=== PATIENT | female | born 1950 | race Hispanic/Latino ===

== ENCOUNTER 2022-07-12 07:50 | Outpatient (CLI) | payer BC, SELFPAY ==
--- NOTE | ~2022-07-12 | MM_ITS ---
EXAMINATION: MM screening gabriela BI w yeni HISTORY: Screening mammogram TECHNIQUE: Craniocaudal and mediolateral oblique 3-D tomosynthesis images were obtained and synthetic 2-D images were generated. CAD analysis was submitted and interpreted. COMPARISON: 06/28/2017, 06/13/2016, 01/28/2015 bilateral screening mammogram examinations BREAST PARENCHYMAL COMPOSITION: The breasts are almost entirely fatty....... FINDINGS: There is no evidence of suspicious mass, calcification, or architectural distortion to sugg est malignancy in either breast. There has been no suspicious interval change. IMPRESSION: 1. No mammographic evidence of malignancy. 2. Recommend routine screening mammography in one year. BI-RADS Category 1: Negative Reviewed, dictated and finalized at location A. [place] [employer]OR
== END 2022-07-12 07:51 | disposition home or self-care (01) ==
PROVIDERS: PCP Family Medicine; Visit Provider Physician Assistant
DX: Z12.31 Encounter for screening mammogram for malignant neoplasm of breast (principal)
CPT/HCPCS: 77063; 77067

== ENCOUNTER 2023-08-21 14:49 | Outpatient (CLI) | payer BC, SELFPAY ==
--- NOTE | ~2023-08-21 | MM_ITS ---
EXAMINATION: MM screening gabriela BI w yeni HISTORY: Screening mammogram, family history of breast cancer in her daughter. TECHNIQUE: Craniocaudal and mediolateral oblique 3-D tomosynthesis images were obtained and synthetic 2-D images were generated. CAD analysis was submitted and interpreted. COMPARISON: 07/12/2022, 06/28/2017, 06/13/2016 BREAST PARENCHYMAL COMPOSITION: There are scattered areas of fibroglandular density. FINDINGS: No suspicious mass, calcification, or architectural distortion are identified in either alex ast to suggest malignancy. There has been no suspicious interval change. IMPRESSION: 1. No mammographic evidence of malignancy. 2. Recommend routine screening mammography in one year. 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
== END 2023-08-21 14:50 | disposition home or self-care (01) ==
PROVIDERS: PCP Family Medicine; Visit Provider Physician Assistant
DX: Z12.31 Encounter for screening mammogram for malignant neoplasm of breast (principal)
CPT/HCPCS: 77063; 77067

== ENCOUNTER 2024-09-16 07:28 | Outpatient (CLI) | payer BC, SELFPAY ==
--- NOTE | ~2024-09-16 | MM_ITS ---
EXAMINATION: MM screening [facility] BI w yeni HISTORY: Screening TECHNIQUE: Craniocaudal and mediolateral oblique 3-D tomosynthesis images were obtained and synthetic 2-D images were generated. CAD analysis was submitted and interpreted. COMPARISON: Comparison to multiple prior studies sequentially, with oldest reviewed study dated 01/28. BREAST PARENCHYMAL COMPOSITION: Not dense: There are scattered areas of fibroglandular density. FINDINGS: There is no evidence of suspicious mass, calcification, or architectural distortion to sugg est malignancy in either breast. There has been no suspicious interval change. IMPRESSION: 1. No mammographic evidence of malignancy. 2. Recommend routine screening mammography in one year. BI-RADS Category 1: Negative Reviewed, dictated and finalized at location A. 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
--- OUTSIDE RECORDS SUMMARY | 2024-09-16 07:32 | XMS_ITS | Data Portability ---
Author Organization [facility] Kash, Main Office Address [address] [place] [address] Assessment No assessment recorded. Plan of Treatment Reminders Order Date Submit Date Provider Last Modified By Organization Details Last Modified Time Details Appointments None recorded. Lab lipid panel, serum 2022 023 [facility] (Lab), [address] [place], [address], 3 04:49:45 vitamin D, 25-hydroxy, total, serum 2022 023 [facility] (Lab), [address] [place], [address], 3 04:49:45 CMP, serum or plasma 2022 023 [facility] (Lab), [address] [place], [address], 3 04:49:45 HbA1c (hemoglobin A1c), blood 2022 023 [facility] (Lab), [address] [place], [address], 3 09:13:25 vitamin D, 25-hydroxy, total, serum 2024 [email or web address] [place] [address] (Lab), [address] [place], [address], 5 08:13:54 CBC w/ auto diff 2024 [email or web address] [place] [address] (Lab), [address] [place], [address], 5 08:13:53 hepatitis C virus Ab, serum 2024 025 [facility] [address] [place] [address] (Lab), [address] [place], [address], 5 08:13:54 glycohemogl obin, total, blood 2024 025 [facility] [address] [place] [address] (Lab), [address] [place], [address], 5 08:13:53 CMP, serum or plasma 2024 025 [facility] [address] [place] [address] (Lab), [address] [place], [address], 5 08:13:53 lipid panel, serum [address] (Lab), [address] [place], [address], 5 08:13:53 hepatic function panel, serum [address] (Lab), [address] [place], [address], 5 08:13:53 Referral cardiologis t referral - Please call patient to schedule an appointment . 2023 024 MARII [facility] Referral Fax Line, [address] [facility] [address], [place], [address], 4 13:37:[address] referral - Please call patient to schedule an appointment . 2023 024 [email or web address] Juliana Leo MD, [address], [place], [address], 4 08:36:49 Procedures None recorded. Surgeries None recorded. Imaging MAMMO, screening, digital, bilateral 2022 023 [email or web address] [facility], [address], [address] [address], [place], [address], 3 12:27:03 electrocard iogram 2023 024 [email or web address] [facility] [place], [address] [place] [address] [address], [place], [address], 4 14:53:37 Medication Orders Flonase Allergy Relief 50 mcg/actuati on nasal spray,suspe nsion [email or web address] [facility], [address] [place], [address], 5 10:44:05 Zithromax Z-Abdi 250 mg tablet 20[address] [facility] [facility], [address] [place], [address], 5 10:43:35 montelukast 10 mg tablet [email or web address] [place] [address] [address], [address] [place], [address], 5 10:45:15 Patient TargetsNo targets recorded. Patient InstructionsNo instructions recorded. Reason for Referral Account Consultant Referral for S kin lesion lesion to rightt middle finger Please call patient to schedule an appointment. Referring Physician: Family Katiana Medicine, Encounter Date: 11/11/2023 Warp Dyeing Tender Referral for Ab normal heart beat Please call patient to schedule an appointment. Referring Physician: Family [facility] Medicine, Encounter Date: 11/11/2023 Results Created Date Observation Date Name Description Value Unit Range Abnormal Flag Note LastModifiedBy Organization Detail LastModifiedTime 02/21/20 21 02/20/2021 BASIC METAB OLIC PANEL sodium 141 mmol/ L 137-14 5 Not Available [facility] (Lab) [address] [place], [address], 02/20/2021 21:20:48 02/21/20 21 02/20/2021 BASIC METAB OLIC PANEL potassium 4.0 mmol/ L 3.5-5. 1 Not Available [facility] (Lab) [address] [place], [address], 02/20/2021 21:20:48 02/21/20 21 02/20/2021 BASIC METAB OLIC PANEL chloride 107 mmol/ L 98-107 Not Available [facility] (Lab) [address] [place], [address], 02/20/2021 21:20:48 02/21/20 21 02/20/2021 BASIC METAB OLIC PANEL carbon dioxide 27 mmol/ L 22-30 Not Available [facility] (Lab) [address] [place], [address], 02/20/2021 21:20:48 02/21/20 21 02/20/2021 BASIC METAB OLIC PANEL BUN 18 mg/dL 8-19 Not Available [facility] (Lab) [address] [place], [address], 02/20/2021 21:20:48 02/21/20 21 02/20/2021 BASIC METAB OLIC PANEL agap 11.0 mmol/ L 14-22 low Not Available [facility] (Lab) [address] [place], [address], 02/20/2021 21:20:48 02/21/20 21 02/20/2021 BASIC METAB OLIC PANEL glucose 99 mg/dL 70-99 Not Available [facility] (Lab) [address] [place], [address], 02/20/2021 21:20:48 02/21/20 21 02/20/2021 BASIC METAB OLIC PANEL creatinine 0.76 mg/dL 0.66-1 .25 Not Available [facility] (Lab) [address] [place], [address], 02/20/2021 21:20:48 02/21/20 21 02/20/2021 BASIC METAB OLIC PANEL GFR >60 Refer ence Range : [place] ge GFR Healt hy Adult : >60 mL/mi n/1.7 3 m2 Chron ic Kidne y Disea se: 15-60 mL/mi n/1.7 3 m2 Kidne y Failu re: <15/m L/min /1.73 m2 www.n iddk. nih.g ov MDRD study equat ion hasn' t been valid ated in child tera <18 yrs of age, pregn ant women , the elder ly >85 yrs of age, or in some racia l or ethni c subgr oups, suc as Hispa nics. Outsi de the valid ated sada eters , estim ated GFR is less accur ate requi ring clini lucy judgm ent on a case by case basis . Clini lucy inter preta tion for other races and ages must be made by the clini johnny . Futhe rmore , any of th e limit ation s with the use of serum creat inine relat ed to nutri jada l statu s o r medic ation usage hasn' t accou nted for the MDRD Study equat ion. For perso ns < 18 yrs of age, a pedia tric GFR calcu lator can be locat ed on the F websi te: https ://dusty vasquez.daniella bailon/pr ofess ional s/kdo qi/gf r_cal culat or Not Available [facility] (Lab) [address] [place], [address], 02/20/2021 21:20:48 02/21/20 21 02/20/2021 BASIC METAB OLIC PANEL calcium 9.5 mg/dL 8.4-10 .2 Not Available [facility] (Lab) [address] [place], [address], 02/20/2021 21:20:48 02/21/20 21 02/20/2021 VITAM IN D 25-HY DROXY vd25oh 37.0 NG/mL 30-100 Vitam in D Statu s: Defic ient: <20 ng/mL Insuf ficie nt: 20-29 ng/mL Suffi cient : 30-10 0 ng/mL Not Available [facility] (Lab) [address] [place], [address], 02/20/2021 21:36:14 02/21/20 21 02/20/2021 HEPAT IC/LI OSCAR PANEL alkaline phosphatase 100 U/L 38-126 Not Available [facility] (Lab) [address] [place], [address], 02/20/2021 21:20:53 02/21/20 21 02/20/2021 HEPAT IC/LI OSCAR PANEL alanine aminotransfe rase 15 U/L 0-35 Not Available [facility] (Lab) [address] [place], [address], 02/20/2021 21:20:53 02/21/20 21 02/20/2021 HEPAT IC/LI OSCAR PANEL aspartate aminotransfe rase 30 U/L 15-37 Not Available [facility] (Lab) [address] [place], [address], 02/20/2021 21:20:53 02/21/20 21 02/20/2021 HEPAT IC/LI OSCAR PANEL bilirubin, total 0.70 mg/dL 0.20-1 .30 Not Available [facility] (Lab) [address] [place], [address], 02/20/2021 21:20:53 02/21/20 21 02/20/2021 HEPAT IC/LI OSCAR PANEL bilirubin, conjugated (direct) 0.00 mg/dL 0.00-0 .30 Not Available [facility] (Lab) [address] [place], [address], 02/20/2021 21:20:53 02/21/20 21 02/20/2021 HEPAT IC/LI OSCAR PANEL biliurubin,u ncong. (indirect) 0.40 mg/dL 0.00-1 .1 Not Available [facility] (Lab) [address] [place], [address], 02/20/2021 21:20:53 02/21/20 21 02/20/2021 HEPAT IC/LI OSCAR PANEL total protein 7.4 g/dL 6.3-8. 2 Not Available [facility] (Lab) [address] [place], [address], 02/20/2021 21:20:53 02/21/20 21 02/20/2021 HEPAT IC/LI OSCAR PANEL albumin 4.5 g/dL 3.0-4. 4 high Not Available [facility] (Lab) [address] [place], [address], 02/20/2021 21:20:53 02/21/20 21 02/20/2021 HEPAT IC/LI OSCAR PANEL globulin 2.9 g/dL 2.6-4. 2 Not Available [facility] (Lab) [address] [place], [address], 02/20/2021 21:20:53 02/21/20 21 02/20/2021 HEPAT IC/LI OSCAR PANEL A/G ratio 1.6 ratio 1.0-2. 0 Not Available [facility] (Lab) [address] [place], [address], 02/20/2021 21:20:53 02/21/20 21 02/20/2021 LIPID PANEL cholesterol 180 mg/dL 140-19 9 [facility] MAR[facility] NSUS RECOM MENDA TION FOR ADIS STERO L: ADULT CHILD LOW RISK: <200 <170 BORDE RLINE : <200- 239 ----- HIGH RISK: >240 >200 Not Available [facility] (Lab) [address] [place], [address], 02/20/2021 21:20:49 02/21/20 21 02/20/2021 LIPID PANEL triglyceride s 117 mg/dL 0-150 NIH MARITA NSUS REPOR T RECOM MENDA TION FOR TRIGL YCERI FILEMON: ADULT CHILD LOW RISK: <150 ----- BODER LINE: 150-1 99 ----- HIGH RISK: >200 ----- Not Available [facility] (Lab) [address] [place], [address], 02/20/2021 21:20:49 02/21/20 21 02/20/2021 LIPID PANEL HDL cholesterol 84 mg/dL 40- Not Available [facility] (Lab) [address] [place], [address], 02/20/2021 21:20:49 02/21/20 21 02/20/2021 LIPID PANEL LDL cholesterol, calculated 73 mg/dL 0-130 [facility] MARITA NSUS REPOR T RECOM MENDA TIONS FOR LDL: ADULT CHILD LOW RISK <130 <110 (OPTI MAL LDL) <100 ----- BORDE RLINE : 130-1 59 ----- HIGH RISK: >160 >130 A TRIGL YCERI DE RESUL T >400 INVAL IDATE S THE CALCU LATIO N FOR LDL FRACT IONAT ION - THE LDL RESUL T WILL NOT BE REPOR ADRIAN. Not Available [facility] (Lab) [address] [place], [address], 02/20/2021 21:20:49 02/21/20 21 02/20/2021 CBC/C OMPLE TE BLD COUNT W/DIF F mean red cell volume 93.0 fL 82.0-9 9.0 Not Available [facility] (Lab) [address] [place], [address], 02/20/2021 20:33:56 02/21/20 21 02/20/2021 CBC/C OMPLE TE BLD COUNT W/DIF F white blood cells 4.1 x10'3 /uL 4.2-10 .8 low Not Available [facility] (Lab) [address] [place], [address], 02/20/2021 20:33:56 02/21/20 21 02/20/2021 CBC/C OMPLE TE BLD COUNT W/DIF F red blood cells 4.44 x10'6 /uL 3.80-5 .20 Not Available [facility] (Lab) [address] [place], [address], 02/20/2021 20:33:56 02/21/20 21 02/20/2021 CBC/C OMPLE TE BLD COUNT W/DIF F hemoglobin 13.3 g/dL 12.0-1 5.6 Not Available [facility] (Lab) [address] [place], [address], 02/20/2021 20:33:56 02/21/20 21 02/20/2021 CBC/C OMPLE TE BLD COUNT W/DIF F hematocrit 41.3 % 35.7-4 5.7 Not Available [facility] (Lab) [address] [place], [address], 02/20/2021 20:33:56 02/21/20 21 02/20/2021 CBC/C OMPLE TE BLD COUNT W/DIF F mean red cell hemoglobin 30.0 pg 27.0-3 3.0 Not Available [facility] (Lab) [address] [place], [address], 02/20/2021 20:33:56 02/21/20 21 02/20/2021 CBC/C OMPLE TE BLD COUNT W/DIF F mean RBC HGB concentratio n 32.2 g/dL 31.0-3 6.0 Not Available [facility] (Lab) [address] [place], [address], 02/20/2021 20:33:56 02/21/20 21 02/20/2021 CBC/C OMPLE TE BLD COUNT W/DIF F red cell distribution width 12.3 % 11.8-1 5.5 Not Available [facility] (Lab) [address] [place], [address], 02/20/2021 20:33:56 02/21/20 21 02/20/2021 CBC/C OMPLE TE BLD COUNT W/DIF F platelets 211 x10'3 /uL 150-40 0 Not Available [facility] (Lab) [address] [place], [address], 02/20/2021 20:33:56 02/21/20 21 02/20/2021 CBC/C OMPLE TE BLD COUNT W/DIF F mean platelet volume 11.7 fL 9.0-12 .4 Not Available [facility] (Lab) [address] [place], [address], 02/20/2021 20:33:56 02/21/20 21 02/20/2021 CBC/C OMPLE TE BLD COUNT W/DIF F neutrophils 50.4 % 39.0-7 2.0 Not Available [facility] (Lab) [address] [place], [address], 02/20/2021 20:33:56 02/21/20 21 02/20/2021 CBC/C OMPLE TE BLD COUNT W/DIF F lymphocytes 35.2 % 16.0-4 7.0 Not Available [facility] (Lab) [address] [place], [address], 02/20/2021 20:33:56 02/21/20 21 02/20/2021 CBC/C OMPLE TE BLD COUNT W/DIF F monocytes 10.0 % 5.0-12 .0 Not Available [facility] (Lab) [address] [place], [address], 02/20/2021 20:33:56 02/21/20 21 02/20/2021 CBC/C OMPLE TE BLD COUNT W/DIF F eosinophils 3.4 % 1.0-7. 0 Not Available [facility] (Lab) [address] [place] [place], [address], 02/20/2021 20:33:56 02/21/20 21 02/20/2021 CBC/C OMPLE TE BLD COUNT W/DIF F basophils 1.0 % 0.0-2. 0 Not Available [facility] (Lab) [address] [place], [address], 02/20/2021 20:33:56 02/21/20 21 02/20/2021 CBC/C OMPLE TE BLD COUNT W/DIF F immature granulocytes 0.0 % 0.00-0 .50 Not Available [facility] (Lab) [address] [place], [address], 02/20/2021 20:33:56 02/21/20 21 02/20/2021 CBC/C OMPLE TE BLD COUNT W/DIF F neutrophils, absolute count 2.08 x10'3 /uL 1.5-8. 0 Not Available [facility] (Lab) [address] [place], [address], 02/20/2021 20:33:56 02/21/20 21 02/20/2021 CBC/C OMPLE TE BLD COUNT W/DIF F lymphocytes, absolute count 1.45 x10'3 /uL 1.07-3 .43 Not Available [facility] (Lab) [address] [place], [address], 02/20/2021 20:33:56 02/21/20 21 02/20/2021 CBC/C OMPLE TE BLD COUNT W/DIF F monocytes, absolute count 0.41 x10'3 /uL 0.29-0 .99 Not Available [facility] (Lab) [address] [place], [address], 02/20/2021 20:33:56 02/21/20 21 02/20/2021 CBC/C OMPLE TE BLD COUNT W/DIF F eosinophils, absolute count 0.14 x10'3 /uL 0.02-0 .53 Not Available [facility] (Lab) [address] [place], [address], 02/20/2021 20:33:56 02/21/20 21 02/20/2021 CBC/C OMPLE TE BLD COUNT W/DIF F basophils, absolute count 0.04 x10'3 /uL 0.01-0 .08 Not Available [facility] (Lab) [address] [place], [address], 02/20/2021 20:33:56 02/21/20 21 02/20/2021 CBC/C OMPLE TE BLD COUNT W/DIF F immature granulocytes ,absolute 0.00 x10'3 /uL 0.00-0 .05 Not Available [facility] (Lab) [address] [place], [address], 02/20/2021 20:33:56 02/21/20 21 02/20/2021 CBC/C OMPLE TE BLD COUNT W/DIF F nucleated red blood cells 0.0 % -0 Not Available [facility] (Lab) [address] [place], [address], 02/20/2021 20:33:56 02/21/20 21 02/20/2021 CBC/C OMPLE TE BLD COUNT W/DIF F NRBC# 0.00 x10'3 /uL Not Available [facility] (Lab) [address] [place], [address], 02/20/2021 20:33:56 04/26/20 22 04/26/2022 HEMOG LOBIN A1C HA1C 5.4 % 4.0-6. 0 Diabe rosy Scree lauren Crite wilver: <5.7% Consi stent with absen ce of diabe rosy 5.7-6 .4% Consi stent with incre ased risk for diabe rosy (pred iabet es) >OR=6 .5% Consi stent with diabe rosy REFER ENCE: Diabe rosy Care 2016, 39(Webb ppl.1 ):s13 -s22 Not Available [facility] (Lab) [address] [place], [address], 04/26/2022 21:22:43 04/26/20 22 04/26/2022 VITAM IN D 25-HY DROXY vd25oh 39.1 NG/mL 30-100 Vitam in D Statu s: Defic ient: <20 ng/mL Insuf ficie nt: 20-29 ng/mL Suffi cient : 30-10 0 ng/mL Not Available [facility] (Lab) [address] [place], [address], 04/26/2022 20:27:34 04/26/20 22 04/26/2022 COMPR EHENS AKILA METAB OLIC PANEL carbon dioxide 28 mmol/ L 22-30 Not Available [facility] (Lab) [address] [place], [address], 04/26/2022 20:21:57 04/26/20 22 04/26/2022 COMPR EHENS AKILA METAB OLIC PANEL sodium 137 mmol/ L 137-14 5 Not Available [facility] (Lab) [address] [place], [address], 04/26/2022 20:21:57 04/26/20 22 04/26/2022 COMPR EHENS AKILA METAB OLIC PANEL potassium 4.8 mmol/ L 3.5-5. 1 Not Available [facility] (Lab) [address] [place], [address], 04/26/2022 20:21:57 04/26/20 22 04/26/2022 COMPR EHENS AKILA METAB OLIC PANEL chloride 100 mmol/ L 98-107 Not Available [facility] (Lab) [address] [place], [address], 04/26/2022 20:21:57 04/26/20 22 04/26/2022 COMPR EHENS AKILA METAB OLIC PANEL anion gap 13.8 mmol/ L 14-22 low Not Available [facility] (Lab) [address] [place], [address], 04/26/2022 20:21:57 04/26/20 22 04/26/2022 COMPR EHENS AKILA METAB OLIC PANEL glucose 93 mg/dL 70-99 Not Available [facility] (Lab) [address] [place], [address], 04/26/2022 20:21:57 04/26/20 22 04/26/2022 COMPR EHENS AKILA METAB OLIC PANEL BUN 16 mg/dL 8-19 Not Available [facility] (Lab) [address] [place], [address], 04/26/2022 20:21:57 04/26/20 22 04/26/2022 COMPR EHENS AKILA METAB OLIC PANEL creatinine 0.92 mg/dL 0.66-1 .25 Not Available [facility] (Lab) [address] [place], [address], 04/26/2022 20:21:57 04/26/20 22 04/26/2022 COMPR EHENS AKILA METAB OLIC PANEL GFR 60 Refer ence Range : [place] ge GFR Healt hy Adult : >60 mL/mi n/1.7 3 m2 Chron ic Kidne y Disea se: 15-60 mL/mi n/1.7 3 m2 Kidne y Failu re: <15/m L/min /1.73 m2 www.n iddk. nih.g ov The MDRD study equat ion has not been valid ated in child tera <18 years of age; pregn ant women ; the elder ly >85 years of age; or in some racia l or ethni c subgr oups, such as Hispa nics. Outsi de the valid ated sada eters , estim ated GFR is less accur ate, requi ring clini lucy judgm ent on a case- by-ca se basis . Clini lucy inter preta tion for other races and ages must be made by the clini johnny. The MDRD study equat ion has not been valid ated for the evalu ation of serum creat inine relat ed to nutri jada l statu s or medic ation usage . For perso ns <18 years of age, a pedia tric GFR calcu lator is avail able on the [facility] websi te: https ://dusty w.krzysztof navarroy.o rg/pr ofess ional s/kdo qi/gf r_cal culat or Not Available [facility] (Lab) [address] [place], [address], 04/26/2022 20:21:57 04/26/20 22 04/26/2022 COMPR EHENS AKILA METAB OLIC PANEL alkaline phosphatase 88 U/L 38-126 Not Available [facility] (Lab) [address] [place], [address], 04/26/2022 20:21:57 04/26/20 22 04/26/2022 COMPR EHENS AKILA METAB OLIC PANEL alanine aminotransfe rase 13 U/L 0-35 Not Available [facility] (Lab) [address] [place], [address], 04/26/2022 20:21:57 04/26/20 22 04/26/2022 COMPR EHENS AKILA METAB OLIC PANEL aspartate aminotransfe rase 23 U/L 15-37 Not Available [facility] (Lab) [address] [place], [address], 04/26/2022 20:21:57 04/26/20 22 04/26/2022 COMPR EHENS AKILA METAB OLIC PANEL bilirubin, total 0.70 mg/dL 0.20-1 .30 Not Available [facility] (Lab) [address] [place], [address], 04/26/2022 20:21:57 04/26/20 22 04/26/2022 COMPR EHENS AKILA METAB OLIC PANEL calcium 9.6 mg/dL 8.4-10 .2 Not Available [facility] (Lab) [address] [place], [address], 04/26/2022 20:21:57 04/26/20 22 04/26/2022 COMPR EHENS AKILA METAB OLIC PANEL total protein 7.3 g/dL 6.3-8. 2 Not Available [facility] (Lab) [address] [place], [address], 04/26/2022 20:21:57 04/26/20 22 04/26/2022 COMPR EHENS AKILA METAB OLIC PANEL albumin 4.5 g/dL 3.0-4. 4 high Not Available [facility] (Lab) [address] [place], [address], 04/26/2022 20:21:57 04/26/20 22 04/26/2022 COMPR EHENS AKILA METAB OLIC PANEL globulin 2.8 g/dL 2.6-4. 2 Not Available [facility] (Lab) [address] [place], [address], 04/26/2022 20:21:57 04/26/20 22 04/26/2022 COMPR EHENS AKILA METAB OLIC PANEL A/G ratio 1.6 ratio 1.0-2. 0 Not Available [facility] (Lab) [address] [place], [address], 04/26/2022 20:21:57 04/26/20 22 04/26/2022 LIPID PANEL cholesterol 178 mg/dL 140-19 9 NIH MARITA NSUS RECOM MENDA TION FOR ADIS STERO L: ADULT CHILD LOW RISK: <200 <170 BORDE RLINE : <200- 239 ----- HIGH RISK: >240 >200 Not Available [facility] (Lab) [address] [place], [address], 04/26/2022 20:22:01 04/26/20 22 04/26/2022 LIPID PANEL triglyceride s 122 mg/dL 0-150 NIH MARITA NSUS REPOR T RECOM MENDA TION FOR TRIGL YCERI FILEMON: ADULT CHILD LOW RISK: <150 ----- BODER LINE: 150-1 99 ----- HIGH RISK: >200 ----- Not Available [facility] (Lab) [address] [place], [address], 04/26/2022 20:22:01 04/26/20 22 04/26/2022 LIPID PANEL HDL cholesterol 75 mg/dL 40- Not Available [facility] (Lab) [address] [place], [address], 04/26/2022 20:22:01 04/26/20 22 04/26/2022 LIPID PANEL LDL cholesterol, calculated 79 mg/dL 0-130 NIH MARITA NSUS REPOR T RECOM MENDA TIONS FOR LDL: ADULT CHILD LOW RISK <130 <110 (OPTI MAL LDL) <100 ----- BORDE RLINE : 130-1 59 ----- HIGH RISK: >160 >130 A TRIGL YCERI DE RESUL T >400 INVAL IDATE S THE CALCU LATIO N FOR LDL FRACT IONAT ION - THE LDL RESUL T WILL NOT BE REPOR ADRIAN. Not Available [facility] (Lab) [address] [place], [address], 04/26/2022 20:22:01 07/13/20 22 07/12/2022 MAMMO , scree lauren, digit al, bilat eral No observ ation record ed. [id number], [place], [address], 10/16/2022 06:18:35 08/21/19 24 08/21/2023 MAMMO , scree lauren, digit al, bilat eral No observ ation record ed. [email or web address] [facility] [address], [place], [address], 09/16/2023 14:23:47 11/11/19 24 elect dagmar laridgr am No observ ation record ed. [email or web address] [facility] [address], [place], [address], 11/11/2023 08:24:31 12/12/19 24 12/12/2023 US, doppl er, venou s No observ ation record ed. [email or web address] [facility] [address], [place], [address], 01/15/2024 09:39:48 12/12/19 24 12/11/2023 US, echoc ardio gram, trans thora cic, compl ete No observ ation record ed. [facility] [address], [place], [address], 01/15/2024 09:42:15 Result Notes None recorded. Problems Name Problem SNOMED Code Status Onset Date Resolution Date Notes Provider Name and Address Organization Details Recorded Time Vitamin D deficiency 65812630 Active 2018 Not Available [facility] 3 06:07:40 Hyperlipidemi a 70557427 Active 2018 Not Available [facility] 3 06:07:40 Essential hypertension 77779726 Active 2018 Not Available [facility] 3 06:07:40 Congestion of throat 368013540 Active 2022 FARZANA Marie [address] [facility], [place], [address] , [place] [facility] 3 09:42:37 Obstructive sleep apnea syndrome 97271760 Active 2022 FARZANA Marie [address], [address], [place], [address] , [facility] [employer] 3 12:07:13 Skin lesion 23149454 Active 2023 Edgar Shearer STUDENT NURSE-C [address], [place], [address] , [place] [facility] [employer] 4 08:12:43 Nasal congestion 55122399 Active 2023 Edgar Shearer STUDENT NURSE-C [address], [address], [place], [address] , [place] [facility] [employer] 4 08:14:57 Abnormal heart beat 426000687 Active 2023 Edgar Shearer STUDENT NURSE-C [address], [place], [address] , [place] [facility] [employer] 4 08:24:27 Problem Notes None recorded. Procedures Surgical History Date Name Laterality Status Provider Name and Address Organization Details Recorded Time Most Recent Mammogram completed Jacqui Green LPN [place] [facility] [employer] 09/15/2023 16:33:36 Imaging Results Imaging Date Name Status LastModified by Organization Details LastModified Time 07/12/2022 MAMMO, screening, digital, bilateral completed [id number], [place], [address], 10/16/2022 06:18:35 08/21/2023 MAMMO, screening, digital, bilateral completed [email or web address] [address], [place], [address], 09/16/2023 14:23:47 11/11/2023 electrocardiogram completed [email or web address] [address], [place], [address], 11/11/2023 08:24:31 12/12/2023 US, doppler, venous completed [facility] [address], [place], [address], 01/15/2024 09:39:48 12/11/2023 US, echocardiogram, transthoracic, complete completed [address] [facility] [address], [place], [address], 01/15/2024 09:42:15 Procedure Notes None recorded. Medical Equipment None Reported. Allergies Allergen ID Allergen Name Allergen Category Reaction Reaction Severity Criticality Documentation Date Start Date Code Code System Note Provider Name and Address Organization Details Recorded Time 44109 amoxicill in medicatio n hives Not available Not available 10/16/2022 723 RxNorm Not Available [facility] 3 06:18:07 74083 Product containin g penicilli n and antibioti c (product) medicatio n hives Not available Not available 11/11/2023 34920 05 SNOMED Khloe Vizcaino RN null, [place] [facility] [place] [employer] 4 08:04:10 Medications Name Sig Start Date Stop Date Status Note LastModified by Organization Details LastModified Time furosemid e 40 mg tablet Take 1 tablet every day by oral route. active Not Available Not Available No t Available atorvasta tin 20 mg tablet TAKE 1 TABLET BY MOUTH ONCE DAILY AT BEDTIME active Not Available Not Available No t Available oxybutyni n chloride ER 10 mg tablet,ex tended release 24 hr Take 1 tablet every day by oral route. active Not Available Not Available No t Available azithromy millie 250 mg tablet TAKE 2 TABLETS (500 MG) BY ORAL ROUTE ONCE DAILY FOR 1 DAY THEN 1 TABLET (250 MG) BY ORAL ROUTE ONCE DAILY FOR 4 DAYS 09/08 completed Not Available Not Available Not Available fluconazo le 150 mg tablet 1 po x 1 active Not Available Not Available Not Available hydrocodo ne 5 mg-acetam inophen 325 mg tablet TAKE 1 TABLET BY MOUTH EVERY 4 HOURS NEEDED FOR PAIN (MODERAT E SCALE 4 6) active Not Available Not Available No t Available lisinopri l 20 mg tablet Take 1 tablet every day by oral route. active Not Available Not Available No t Available prednison e 20 mg tablet TAKE 2 TABLETS BY MOUTH ONCE DAILY WITH FOOD FOR 5 DAYS active Not Available Not Available No t Available aspirin 81 mg tablet,de layed release Take 1 tablet every day by oral route. 2018 active Not Available Not Available Not Avai lable amoxicill in 875 mg tablet TAKE 1 TABLET BY MOUTH EVERY 12 HOURS FOR 7 DAYS active Not Available Not Available No t Available benzonata te 100 mg capsule TAKE 1 CAPSULE BY MOUTH THREE TIMES DAILY FOR 10 DAYS 04/26 completed Not Available Not Available Not Available pantopraz ole 40 mg tablet,de layed release Take 1 tablet every day by oral route. 06/24 completed Not Available Not Available Not Available lisinopri l 20 mg-hydroc hlorothia zide 25 mg tablet TAKE 1 TABLET BY MOUTH ONCE DAILY 09/08 completed Not Available Not Available Not Available diclofena c sodium 75 mg tablet,de layed release Take 1 tablet by mouth twice daily as needed 02/10 completed stopped by cardiolo gist Not Available Not Available Not Available monteluka st 10 mg tablet Take 1 tablet every day by oral route. 09/08 completed Not Available Not Available Not Available albuterol sulfate HFA 90 mcg/actua tion aerosol inhaler INHALE 1 TO 2 PUFFS BY MOUTH EVERY 4 TO 6 HOURS NEEDED FOR WHEEZING FOR 10 DAYS active Not Available Not Available No t Available fluticaso ne propionat e 50 mcg/actua tion nasal spray,jessica pension USE 1 SPRAY(S) IN EACH NOSTRIL ONCE DAILY 09/08 completed Not Available Not Available Not Available metoprolo l tartrate 25 mg tablet TAKE 1 TABLET BY MOUTH TWICE DAILY active Not Available Not Available No t Available acetamino phen 03/06 completed Not Available Not Available Not Available naproxen 03/08 completed Not Available Not Available Not Available Vitamin D3 125 mcg (5,000 unit) tablet Take 1 tablet every day by oral route. 2022 active Not Available Not Available Not Avai lable Myrbetriq 25 mg tablet,ex tended release Take 1 tablet every day by oral route. 03/06 completed Not Available Not Available Not Available Eliquis 2.5 mg tablet TAKE 1 TABLET BY MOUTH TWICE DAILY (CONTINU E THROUGH 8 27) active Not Available Not Available No t Available Fluzone High-Dose 2019-20 (PF) 180 mcg/0.5 mL intramusc ular syringe ADM 0.5ML IM UTD 04/26 completed Not Available Not Available Not Available Fluad Quad (65yr up)(PF) 60 mcg (15 mcg x 4)/0.5mL IM syringe ADM 0.5ML IM UTD active Not Available Not Available No t Available Vitals Date Recorded Body mass index (BMI) Body height Oxygen saturation Oxygen saturation in Arterial blood by Pulse oximetry Heart rate Body temperature Body weight Systolic blood pressure Diastolic blood pressure Provider Name and Address Organization Details Last Updated DateTime 1 41.2 kg/m2 154.94 cm 99 % 99 % 79 /min 97.4 [degF] 13098.1 4 g 122 mm[Hg] 72 mm[Hg] Not Available [facility] 3 06:05:13 Date Recorded Body mass index (BMI) Body height Oxygen saturation Oxygen saturation in Arterial blood by Pulse oximetry Heart rate Body temperature Body weight Systolic blood pressure Diastolic blood pressure Provider Name and Address Organization Details Last Updated DateTime 2 43.8 kg/m2 154.94 cm 96 % 96 % 77 /min 98.1 [degF] 686879. 43 g 140 mm[Hg] 76 mm[Hg] Not Available [facility] 3 06:05:13 Date Recorded Body weight Body mass index (BMI) Body height Body temperature Heart rate Oxygen saturation Oxygen saturation in Arterial blood by Pulse oximetry Systolic blood pressure Diastolic blood pressure Provider Name and Address Organization Details Last Updated DateTime 3 953750. 69 g 41 kg/m2 157.48 cm 98.4 [degF] 47 /min 95 % 95 % 162 mm[Hg] 81 mm[Hg] Thelma Fitch MA [place] [employer] [facility] 3 08:34:09 Date Recorded Systolic blood pressure Diastolic blood pressure Provider Name and Address Organization Details Last Updated DateTime 06/24/2023 148 mm[Hg] 90 mm[Hg] FARZANA Marie [address] [facility], [place] [address], [place], [address], [place] [employer] [facility] 06/24/2023 09:41:48 Date Recorded Body height Body mass index (BMI) Body weight Body temperature Heart rate Oxygen saturation Oxygen saturation in Arterial blood by Pulse oximetry Systolic blood pressure Diastolic blood pressure Provider Name and Address Organization Details Last Updated DateTime 4 157.48 cm 40.6 kg/m2 033538. 51 g 96.9 [degF] 59 /min 100 % 100 % 132 mm[Hg] 72 mm[Hg] Khloe Vizcaino RN [facility] [employer] [facility] 4 08:06:36 Date Recorded Body height Body mass index (BMI) Body weight Body temperature Heart rate Oxygen saturation Oxygen saturation in Arterial blood by Pulse oximetry Systolic blood pressure Diastolic blood pressure Provider Name and Address Organization Details Last Updated DateTime 5 157.48 cm 40.1 kg/m2 63930.7 3 g 96.7 [degF] 64 /min 94 % 94 % 126 mm[Hg] 72 mm[Hg] Avel Mackey RN [facility] [employer] [facility] 5 10:43:19 Social History None recorded. Functional Status None recorded. Mental Status None recorded. Family History Nothing Reported. Medical History No medical history recorded. Gynecological History Statement/Question Response Date of Last Mammogram 08/21/2023 Most Recent Mammogram 08/21/2023 Obstetrics History GPAL:G 0 P 0 0 0 0 Immunizations Vaccine Type Date Status Note Provider Nam e and Address Organization Details Recorded Time Influenza, high-dose, quadrivalent, PF 3 completed GLORY Knight [facility] [employer] [facility] 06/24/2023 11:57:51 Tdap 3 completed GLORY Knight [facility] [employer] [facility] 06/24/2023 12:16:15 COVID-19, mRNA, LNP-S, PF, 30 mcg/0.3 mL dose 1 completed Not Available [facility] 10/16/2022 06:17:52 COVID-19, mRNA, LNP-S, PF, 30 mcg/0.3 mL dose 1 completed Not Available [facility] 10/16/2022 06:17:52 Influenza, split virus, quadrivalent, preservative 9 completed Not Available [facility] 10/16/2022 06:17:52 Past Encounters Encounter ID Performer Location Encounter Start Date Encounter Closed Date Diagnosis/Indication Diagnosis SNOMED-CT Code Diagnosis ICD10 Code Diagnosis Note [id number] [facility] [place] [address] [facility] [address] [place] [address] 02/20/2021 00:00:00 02/20/2021 09:35:07 [id number] [facility] [place] [address] [facility] [address] [address] 04/26/2022 00:00:00 04/26/2022 12:25:53 [id number] FARZANA Marie [facility] [place] [address] [facility] [address] [place] [address] 06/24/2023 08:22:07 06/24/2023 09:40:36 Administration of influenza vaccine 63157289 Z23 Adult heal th examination 476377680 Z00.00 Will get routine labs today. Covid vaccines- recommende d; declinesFl u vaccine- updated todayTetan us vaccine- will update todayPneum onia vaccine- recommende d; decline to update today Colonoscop y- declines; pt states she has never had oneMammogr am- ordered Recommende d routine eye exams and dental cleanings. Screening mammography 24 161343 Z12.31 Administra tion of tetanus vaccine 259739907 Z23 Diabetes m ellitus screening 629366535 Z13.1 Hyperlipidemia 79978744 E78.5 Essential hypertension 09406952 I10 Elevated while in office. Pt. denies any symptoms. Advised to continue to monitor at home.Will titrate medication as necessary. Vitamin D deficiency 347 69251 E55.9 Congestion of throat 102 453230 R09.89 Symptoms sound more allergic. Advised to try flonase/al lergy medication . [id number] ADELAIDA Saab [facility] [place] [address] [facility] [address] [address] 11/11/2023 07:56:48 11/11/2023 11:35:32 Skin lesion 97615212 L98.9 -noted to right middle finger since last year-c/o of pain when she bumps it up against something- occ has fluid that comes out of it-referra l to derm given Nasal congestion 2292683 0 R09.81 -notes nasal congestion quite a bit-uses 2 sprays of fluticason e/day with min effect-all egra daily-uses coricidin when symptoms get too bad-trial zpak-trial montelukas t Abnormal heart beat 3611 29061 R00.9 -noted on exam-pt unable to speak to cardiac history-no t currently f/u with cardiology -ekg obtained-s inus arrhythmia , consider premature supraventr icular complexes, HR elevated to 102 from 59 after transferri ng to table-card iology referral given [id number] Kalee Matos, STUDENT NURSE-C [facility] Primary Care [facility] [address] [address] [place] [address] 09/08/2024 10:33:47 09/08/2024 11:16:18 Adult health examination 497623002 Z00.00 Discussed medication compliance and routine follow up.Discuss ed healthy diet and routine exercise.R marywed vaccine records and made recommenda tions as needed.Enc ouraged annual eye and dental exams, as well as twice yearly dental cleanings. Will check screening labs as listed below. Essential hypertension 48081116 I10 126/72Will check labs as listed below. Hyperlipidemia 95066644 E78.5 Will check labs as listed below. Vitamin D deficiency 347 76373 E55.9 Diabetes m ellitus screening 824444962 Z13.1 Will check labs as listed below.Disc ussed importance of diabetic eye and foot exam, patient verbalized understand ing. Hepatitis C screening 41 6965322 Z11.59 Health Concerns Section Related Observation LastModified by Organization Detai ls LastModified Time None Recorded Concern Status LastModified by Organization Details LastModified Time None Recorded Advance Directives Directive None Recorded Payers Encounter Date Sequence Insurance Name Policy Number Policy Live Covered Member ID Live Member ID Guarantor Name 06/24/2023 1 [place] [id number] Kari Sunshine [id number] Kari A Sunshine 11/11/2023 1 [employer] [id number] Kari Sunshine [id number] Kari A Sunshine 09/08/2024 [address] [facility]: ([place] [id number] Kari Sunshine [id number] Kari Sunshine Notes Date Note Type Note Provider Name and Address Organization Details Recorded Time 06/24/2023 text/html Pt. here for annual physical. She would like to get a flu shot.She is also complaining of a knot on her finger and some throat congestion. FARZANA Marie [address] [facility], [place] [address], [place], [address], [employer] 07/22/2023 12:06:13 11/11/2023 text/html Pt is here for f/u ADELAIDA Melo [address] [facility], [place] [address], [place], [address], [employer] 11/11/2023 16:27:44 09/08/2024 text/html Patient is a 74 year old female that presents to the office for annual wellness. Patient reports she is doing well and has no concerns at this time. Patient sees [facility] every 6 months. labs- orderedMammogram- scheduled for next monthColonoscopy-d eclinesFlu-UTDCovi a-[id number] (2022)Shingles-dec linesPneumonia-UTD ADELAIDA Marquez [address], [place] [address], [place], [address], [employer] 09/08/2024 21:11:56 OBGyn Episode No OBEpisode recorded.
--- OUTSIDE RECORDS SUMMARY | 2024-09-16 07:33 | XMS_ITS | CONTINUITY OF CARE DOCUMENT ---
Author Name dilmavibha dilmavibha Address Unknown Organization [facility] Address [address] [place] [address] Phone [phone] Care Team Providers Care Ballistician Name Role Phone Matias Dobson MD Unavailable [phone] BOLTONRAFAEL GORE Unavailable RAFAEL WARNER Unavailable [phone] PROBLEMS Condition Status Date Provider Notes Edema active Matias Dobson MD Fatigue active Matias Dobson MD Sinus bradycardia active Matias Dobson MD Hypertension active Matias Dobson MD Hyperlipidemia active Matias Dobson MD Palpitations active Matias Dobson MD CHF - HFpEF active Matias Dobson MD ENCOUNTERS Date Type Provider Location Encounter Diag nosis - In-person encounter Office Visit Matias Dobson MD [place] [facility] - In-person encounter Office Visit Matias Dobson MD [facility] - In-person encounter Office Visit Matias Dobson MD [place] [facility] PalpitationsCHF - HFpEF - In-person encounter Office Visit Matias Dobson MD [place] [facility] EdemaFatigueSinus bradycardiaHypertensionHyperlipidemia VITAL SIGNS Date Observation Value Provider Body Mass Index (Ratio) 42.96 kg/m2 oMses Wh[place] blood pressure, diastolic 77 mm[Hg] Farhana [facility] blood pressure, systolic 140 mm[Hg] Mackenzie [facility] blood pressure, diastolic 77 mm[Hg] Farhana [facility] blood pressure, systolic 140 mm[Hg] Mackenzie [facility] blood pressure, diastolic 77 mm[Hg] Vi muriel [facility] blood pressure, systolic 140 mm[Hg] Vip in [facility] pulse rate 49 /min [facility] oxygen saturation, oximetry 97 % [facility] respiratory rate E&M 16 /min [facility] Meron [facility] weight E&M 220 [lb_av] [facility] blood pressure, cuff size regular Dinora llamas [facility] height E&M 60 [in_i] [facility] Body Mass Index (Ratio) 42.77 kg/m2 Moses Wharton blood pressure, cuff size regular Milo feng [place] blood pressure, diastolic 78 mm[Hg] Milo feng Pena blood pressure, systolic 128 mm[Hg] [facility] [place] oxygen saturation, oximetry 93 % Rozina Pena respiratory rate E&M 12 /min Rozina Pena pulse rate 58 /min Rozina Pena weight E&M 219 [lb_av] Rozina [place] height E&M 60 [in_i] Rozina [place] Body Mass Index (Ratio) 43.55 kg/m2 Matias Dobson MD blood pressure, cuff size regular Ke rri Nilson blood pressure, diastolic 86 mm[Hg] Ke rri Thomasuekendra blood pressure, systolic 146 mm[Hg] Vidhi Devine oxygen saturation, oximetry 95 % Lauren Devine respiratory rate E&M 12 /min Lauren pappas pulse rate 78 /min Lauren Mckeon ld weight E&M 223 [lb_av] Lauren john height E&M 60 [in_i] Lauren Mckeon [facility] Body Mass Index (Ratio) 44.33 kg/m2 Grah am Lupe blood pressure, diastolic 103 mm[Hg] Li [facility] blood pressure, systolic 163 mm[Hg] Mackenzie [facility] blood pressure, cuff size regular [facility] blood pressure, diastolic 103 mm[Hg] [facility] blood pressure, systolic 163 mm[Hg] [facility] 68 /min [facility] oxygen saturation, oximetry 97 % [facility] respiratory rate E&M 14 /min Christal Chance iller weight E&M 227 [lb_av] [facility] height E&M 60 [in_i] [facility] ALLERGIES Allergy Name Onset Date Reaction Criticality Status JARDIANCE Pt complained of headaches Low Criti cality active PENICILLIN High Criticality active AMOXICILLIN High Criticality active RESULTS Date Observation Value Provider Reference Range Interpretation Location 4 pro brain natriuretic peptide 521 pg/mL [facility] 0-301 High 4 microalbumin/creatin ine ratio, urine 5 MG/G CREAT [facility] 0-29 4 microalbumin, random, urine 0.68 mg/dL [facility] Units converted. See lab report for original value. 4 creatinine, random, urine 139.1 mg/dL [facility] Not Estab. 4 calcium, serum 9.6 mg/dL [facility] 8.7-10.3 4 carbon dioxide, venous blood 23 mmol/L [facility] 20-29 4 chloride, serum 105 mmol/L [facility] 96-106 4 potassium, serum 4.5 mmol/L [facility] 3.5-5.2 4 sodium, serum 141 mmol/L [facility] [phone]/09/1 4 urea nitrogen/creatinine ratio, serum 16 [facility] 12-28 4 creatinine, serum 0.94 mg/dL [facility] 0.57-1.00 4 urea nitrogen, blood 15 mg/dL [facility] 8-27 4 blood glucose, random 94 mg/dL [facility] 70-99 3 hemoglobin A1C, blood, as % of total hemoglobin 5.8 % [facility] 4.8-5.6 High 3 c-reactive protein, quantitative, serum 7.23 mg/L [facility] 0.00-3.00 High 3 pro brain natriuretic peptide 558 pg/mL [facility] 0-301 High 3 microalbumin/creatin ine ratio, urine 6 MG/G CREAT [facility] 0-29 3 microalbumin, random, urine 1.05 mg/dL [facility] Units converted. See lab report for original value. 3 creatinine, random, urine 181.1 mg/dL [facility] Not Estab. 3 free thyroxine index 2.4 [facility] 1.2-4.9 3 triiodothyronine resin uptake 26 % [facility] 24-39 3 thyroxine, serum, total 9.4 ug/dL [facility] 4.5-12.0 3 thyroid stimulating hormone, serum 1.930 u[IU]/mL [facility] 0.450-4.500 3 lipoprotein, beta, serum, point, quantitative, calculated 78 mg/dL [facility] 0-99 3 HDL cholesterol, serum 76 mg/dL [facility] >39 3 triglyceride, serum, random 104 mg/dL [facility] 0-149 3 cholesterol, serum 172 mg/dL [facility] 716-179 8723/04/1 3 calcium, serum 9.9 mg/dL [facility] 8.7-10.3 3 carbon dioxide, venous blood 23 mmol/L [facility] 20-29 3 chloride, serum 102 mmol/L [facility] 96-106 3 potassium, serum 5.1 mmol/L [facility] 3.5-5.2 3 sodium, serum 142 mmol/L [facility] [phone]/04/1 3 urea nitrogen/creatinine ratio, serum 18 [facility] 12-28 3 creatinine, serum 1.01 mg/dL [facility] 0.57-1.00 High 3 urea nitrogen, blood 18 mg/dL [facility] 8-27 3 blood glucose, random 94 mg/dL [facility] 70-99 3 hemoglobin A1C, blood, as % of total hemoglobin 5.9 % [facility] 4.8-5.6 High HISTORY OF MEDICATION USE Medication Status Instructions Dates Provider Indications Com ments lisinopril 20 mg tablet active Take 1 tablet by mouth once a day 3 Matias Dobson MD metoprolol tartrate 25 mg tablet active Take 1/2 tablet by mouth twice a day 3 Matias Dobson MD Lasix 40 mg tablet active Take 1 tablet by mouth once a day 3 Matias Dobson MD diclofenac sodium 75 mg tablet,delayed release (DR/EC) completed - 9 Julian Skinner atorvastatin 20 mg tablet active Take 1 tablet by mouth every night Julian Skinner lisinopril-hydroc hlorothiazide 20-25 mg tablet completed - 3 Matias Dobson MD montelukast 10 mg tablet completed - 9 Julian Skinner SOCIAL HISTORY Date Observation Value Provider smoking status Never smoker Matias Cisneros smoking status Never smoker Matias Cisneros smoking status Never smoker Matias Cisneros smoking status Never smoker [facility] INSURANCE PROVIDERS Payer name Policy type / Coverage type [place] [employer] party ID [facility] [id number] ADVANCE DIRECTIVES Name Date DISCUSSED - NO DECISION MADE TREATMENT PLAN Date Name Performer Cardiology: Still mendoza s SOB on exertion. Pt is interested in [facility] clinical trial. Nam Wharton Cardiology:Pt c/o fa tigue. ekg showed sinus bradycardia. will reduce metoprolol to 12.5 Bid. Nam Akiko Cardiology: B P today: 140/77 P rior BP: 128/78 (04/28/2024) Labs Reviewed: C reat: 0.94 (05/01/2024) C hol: 172 (11/29/2023) HDL: 76 (11/29/2023) LDL: 78 (11/29/2023) T (11/29/2023) Her updated medication list for this problem includes: Metoprolol Tartrate 25 Mg Tablet (Metoprolol tartrate) ..... Take 1/2 tablet by mouth twice a day Lisinopril 20 Mg Tablet (Lisinopril) ..... Take 1 tablet by mouth once a day Lasix 40 Mg Tablet (Furosemide) ..... Take 1 tablet by mouth once a day This visit has been a part of the consistent, comprehensive, and ongoing management of the chronic medical condition(s) listed above for the patient. Nam Akiko Cardiology: H er updated medication list for this problem includes: Atorvastatin 20 Mg Tablet (Atorvastatin) ..... Take 1 tablet by mouth every night This visit has been a part of the consistent, comprehensive, and ongoing management of the chronic medical condition(s) listed above for the patient. Nam Wharton Cardiology:Pt c/o fa tigue. ekg showed sinus bradycardia. will reduce metoprolol to 12.5 Bid. Nam Wharton Cardiology: B P today: 128/78 P rior BP: 146/86 (01/19/2024) Her updated medication list for this problem includes: Lisinopril 20 Mg Tablet (Lisinopril) ..... Take 1 tablet by mouth once a day Metoprolol Tartrate 25 Mg Tablet (Metoprolol tartrate) ..... Take 1 tablet by mouth twice a day Lasix 40 Mg Tablet (Furosemide) ..... Take 1 tablet by mouth once a day Nam Wharton Cardiology:Pt report s improvement of sx since starting metoprolol. SOB imrpoved but still having exertional dyspnea CHF class II. H er updated medication list for this problem includes: Lisinopril 20 Mg Tablet (Lisinopril) ..... Take 1 tablet by mouth once a day Metoprolol Tartrate 25 Mg Tablet (Metoprolol tartrate) ..... Take 1 tablet by mouth twice a day Lasix 40 Mg Tablet (Furosemide) ..... Take 1 tablet by mouth once a day Nam Wharton Cardiology:complains of leg cramps, we will check potassium level. Nam Wharton Cardiology: H er updated medication list for this problem includes: Atorvastatin 20 Mg Tablet (Atorvastatin) This visit has been a part of the consistent, comprehensive, and ongoing management of the chronic medical condition(s) listed above for the patient. Nam Wharton Cardiology: H er updated medication list for this problem includes: Lisinopril 20 Mg Tablet (Lisinopril) ..... Take 1 tablet by mouth once a day Metoprolol Tartrate 25 Mg Tablet (Metoprolol tartrate) ..... Take 1 tablet by mouth twice a day Nam Wharton Cardiology: H er updated medication list for this problem includes: Atorvastatin 20 Mg Tablet (Atorvastatin) Matias Dobson MD Cardiology: B P today: 146/86 P rior BP: 163/103 (11/24/2023) Labs Reviewed: C reat: 1.01 (11/29/2023) C hol: 172 (11/29/2023) HDL: 76 (11/29/2023) LDL: 78 (11/29/2023) T (11/29/2023) The following medications were removed from the medication list: Lisinopril-hydrochlorothiazide 20-25 Mg Tablet (Lisinopril-hydrochlorothiazide) Her updated medication list for this problem includes: Lisinopril 20 Mg Tablet (Lisinopril) ..... Take 1 tablet by mouth once a day Metoprolol Tartrate 25 Mg Tablet (Metoprolol tartrate) ..... Take 1 tablet by mouth twice a day Lasix 40 Mg Tablet (Furosemide) ..... Take 1 tablet by mouth once a day Matias Dobson MD Cardiology:Holter sh owed episodes of SVT. Will start Metoprolol tartrate 25mg BID to better control HR. Matias Dobson MD Cardiology:Will star t Metoprolol, Lasix, and Lisinopril for HFpEF The following medications were removed from the medication list: Lisinopril-hydrochlorothiazide 20-25 Mg Tablet (Lisinopril-hydrochlorothiazide) Her updated medication list for this problem includes: Lisinopril 20 Mg Tablet (Lisinopril) ..... Take 1 tablet by mouth once a day Metoprolol Tartrate 25 Mg Tablet (Metoprolol tartrate) ..... Take 1 tablet by mouth twice a day Lasix 40 Mg Tablet (Furosemide) ..... Take 1 tablet by mouth once a day Matias Dobson MD Cardiology: H er updated medication list for this problem includes: Atorvastatin 20 Mg Tablet (Atorvastatin) Baldev Andrade Cardiology: B P today: 163/103 Her updated medication list for this problem includes: Lisinopril-hydrochlorothiazide 20-25 Mg Tablet (Lisinopril-hydrochlorothiazide) Baldev Andrade Cardiology:omplains of leg edema with leg throbbing. Baldev Andrade Cardiology:Pt compla ins of fatigue and leg swelling. EKG revealed marked sinus bradycardia with SVT at doctor's office. Complains of leg edema with leg throbbing. Will obtain 1 week telecentry, echo, venous duplex, and lab work. Baldev Andrade Date Name PROBNP, N TERMINAL Microalb/Creatinine Urine, Random HEMOGLOBIN A1c BASIC METABOLIC PANE L W/EGFR TSH, free T4, total T3 CRP, high sensitivit y LIPID PANEL PROBNP, N TERMINAL Microalb/Creatinine Urine, Random HEMOGLOBIN A1c BASIC METABOLIC PANE L W/EGFR Venous Doppler Bilat eral LE - Reflux Complete Echo Monitor - Telemetry (Mobile Cardiac) HISTORY OF PROCEDURES Procedure Date Procedure Name Provider Procedure Notes S tatus Complex e/m visit add on Matias Dobson MD completed Complex e/m visit add on Matias Dobson MD completed
--- OUTSIDE RECORDS SUMMARY | 2024-09-16 07:33 | XMS_ITS | Patient Health Record ---
Author Organization [facility] [facility] Address [address] [place] [address] Care Team Providers Care Osteopathic Neurologist Name Role Phone Ger Vera DO Primary Care Provider Unavailmykel Escoto JR, MD, Edward Unavailable REASON FOR REFERRAL No Information MEDICATIONS Medication SIG (Take, Route, Fr equency, Duration) Notes Start Date End Date Status lipitor Active Lisinopril Active Atorvastatin Calcium Active IMMUNIZATIONS Vaccine Route Administration Date Status Comme nts Influenza Unknown 09/08/2018 Refused pneumoccocal Unknown 09/08/2018 Refused SOCIAL HISTORY Tobacco Use: Social History Observation Description Date Details (start date - stop date) Never Smoker NA - NA Sex Assigned At : Social History Observation Description Sex Assigned At Unknown Tobacco Use: Question Answer Notes Patient is a: nonsmoker Alcohol screening: Question Answer Notes Did you have a drink containing alcohol in the p ast year? No Points 0 Interpretation Negative PROBLEMS Problem Type ICD Code Onset Dates Problem Status W/U Status Risk SNOMED Code Notes Problem Primary osteoarthritis of right hip (M16.11) Active confirmed 300522312 Problem Localized primary osteoarthritis of right lower leg (M17.11) Active confirmed 685544074 Problem Morbid (severe) obesity due to excess calories (E66.01) Active confirmed 563876865 PLAN OF TREATMENT No Information Insurance Providers Payer Name Payer Address Payer Phone Subscriber Number Group Number Insured Name Patient Relationship to Insured Coverage Start Date Coverage End Date [facility] [address] [address] [place] [phone] [id number] Kari Sunshine Self - patient is the insured MEDICAL (GENERAL) HISTORY Medical History History ICD Code hypertension hyperlipidemia Hiatal hernia Surgical History Surgery Date(Month/Year) section hysterectomy Bladder lift
== END 2024-09-16 07:29 | disposition home or self-care (01) ==
PROVIDERS: PCP Family Medicine; Visit Provider Nurse Practitioner Family
DX: Z12.31 Encounter for screening mammogram for malignant neoplasm of breast (principal)
CPT/HCPCS: 77063; 77067